=== PATIENT | male | born 1995 | race Caucasian/White ===

== ENCOUNTER 2016-11-10 18:05 | Emergency (ER) | payer BC ==
[2016-11-10 18:17] VITALS: RESP 16
[2016-11-10] MEDS ORDERED: DOXYCYCLINE HYCLATE 100 MG CAP/TAB PO ONE (19:19)
--- NOTE | 2016-11-10 19:26 | EDPHY ---
H & P Stated Complaint: rash on R side of chest tick Time Seen by Provider: 11/10/16 18:41 HPI/ROS: CHIEF COMPLAINT: tick bite followed by rash HISTORY OF PRESENT ILLNESS: 20-year-old male presents emergency department concerned about a rash to the right side of his chest. Patient was in [place] and pulled a tick off of the right side of his chest. Patient reports he had mild erythema surrounding this that resolved then approximately 1 week later developed a red rash to the right side of his chest that has grown in size. Patient denies fevers or chills, no headaches, muscle aches, joint pain. He denies itching to the rash, no pain. No nausea or vomiting, no abdominal pain. No tongue swelling, difficulty breathing. REVIEW OF SYSTEMS: A comprehensive 10 point review of systems is otherwise negative aside from elements mentioned in the history of present illness. Source: Patient Exam Limitations: No limitations - Personal History Current Tetanus/Diphtheria Vaccine: Yes Current Tetanus Diphtheria and Acellular Pertussis (TDAP): Yes - Medical/Surgical History Hx Asthma: No Hx Chronic Respiratory Disease: No Hx Diabetes: No Hx Cardiac Disease: No Hx Renal Disease: No Hx Cirrhosis: No Hx Alcoholism: No Hx HIV/AIDS: No Hx Splenectomy or Spleen Trauma: No - Social History Smoking Status: Current every day smoker - Physical Exam Exam: Physical Exam Gen: Alert and Oriented, NAD HEENT: PERRL, moist mucous membranes NECK: no meningismus CV: regular rate and regular rhythm PULM: CTAB, no wheezes ABDOMEN: soft, non tender to palpation, BS present BACK: No CVA tenderness NEURO: Neurologically grossly intact EXTREMITIES: normal appearing SKIN: large [place] rash to right side of chest PSYCH: answers questions appropriately. Constitutional: Initial Vital Signs Temperature (C) 36.8 C 11/10/16 18:14 Heart Rate 92 11/10/16 18:14 Respiratory Rate 16 11/10/16 18:14 Blood Pressure 98/58 L 11/10/16 18:14 O2 Sat (%) 93 11/10/16 18:14 O2 Delivery Mode Room Air Allergies/Adverse Reactions: No Known Allergies Allergy (Unverified 11/10/16 18:17) Home Medications: Medication Instructions Recorded Doxycycline Hyclate 100 mg PO BID #42 tab 11/10/16 Medical Decision Making ED Course/Re-evaluation: Patient presents with erythema migrans after a tick bite a [place] 20 days ago. Patient with no systemic symptoms, no fevers, joint pain, headaches. I started the patient on doxycycline twice daily. He has been given a 21 day course. Lyme antibody titer has been ordered. Patient has been referred to Infectious Disease to follow up at 1st available appointment. Differential Diagnosis: Diagnosis considered but not limited to Lyme disease, cellulitis, contact dermatitis, Selvin Maxx syndrome - Data Points Laboratory Results: Laboratory Results 11/10/16 18:31 11/10/16 18:31 11/10/16 11/10/16 11/10/16 18:31 18:31 18:31 WBC 8.37 10^3/uL 10^3/uL (3.80-9.50) RBC 4.74 10^6/uL 10^6/uL (4.40-6.38) Hgb 14.4 g/dL g/dL (13.7-17.5) Hct 39.9 % L % (40.0-51.0) MCV 84.2 fL fL (81.5-99.8) MCH 30.4 pg pg (27.9-34.1) MCHC 36.1 g/dL g/dL (32.4-36.7) RDW 13.0 % % (11.5-15.2) Plt Count 224 10^3/uL 10^3/uL (150-400) MPV 10.0 fL fL (8.7-11.7) Neut % (Auto) 78.3 % H % (39.3-74.2) Lymph % (Auto) 16.6 % % (15.0-45.0) [place] % (Auto) 3.6 % L % (4.5-13.0) Eos % (Auto) 0.5 % L % (0.6-7.6) Baso % (Auto) 0.6 % % (0.3-1.7) Nucleat RBC Rel Count 0.0 % % (0.0-0.2) Absolute Neuts (auto) 6.56 10^3/uL H 10^3/uL (1.70-6.50) Absolute Lymphs (auto) 1.39 10^3/uL 10^3/uL (1.00-3.00) Absolute Monos (auto) 0.30 10^3/uL 10^3/uL (0.30-0.80) Absolute Eos (auto) 0.04 10^3/uL 10^3/uL (0.03-0.40) Absolute Basos (auto) 0.05 10^3/uL 10^3/uL (0.02-0.10) Absolute Nucleated RBC 0.00 10^3/uL 10^3/uL (0-0.01) Immature Gran % 0.4 % % (0.0-1.1) Immature Gran # 0.03 10^3/uL 10^3/uL (0.00-0.10) Sodium 143 mEq/L mEq/L (134-144) Potassium 3.8 mEq/L mEq/L (3.5-5.2) Chloride 106 mEq/L mEq/L (97-110) Carbon Dioxide 25 mEq/l mEq/l (22-31) Anion Gap 12 mEq/L mEq/L (8-16) BUN 10 mg/dL mg/dL (7-23) Creatinine 1.1 mg/dL mg/dL (0.7-1.3) Estimated GFR > 60 Glucose 118 mg/dL H mg/dL (70-100) Calcium 9.7 mg/dL mg/dL (8.5-10.4) Total Bilirubin 0.6 mg/dL mg/dL (0.1-1.4) AST 23 IU/L IU/L (17-59) ALT 34 IU/L IU/L (21-72) Alkaline Phosphatase 50 IU/L IU/L (38-126) Total Protein 7.0 g/dL g/dL (6.3-8.2) Albumin 4.2 g/dL g/dL (3.5-5.0) Lyme Total Antibody Pending Medications Given: Discontinued Medications Doxycycline Hyclate (Doxycycline Hyclate) 100 mg PO EDNOW ONE PRN Reason: Protocol Stop: 11/10/16 19:20 Last Admin: 11/10/16 19:51 Dose: 100 mg Doxycycline Hyclate (Vibramycin 100 Mg Prepack#2) 1 btl TAKEHOME EDNOW ONE Stop: 11/10/16 19:29 Last Admin: 11/10/16 19:51 Dose: 1 btl Departure - Departure Disposition: Home, Routine, Self-Care Clinical Impression: Erythema migrans (Lyme disease) Condition: Good Instructions: Doxycycline (By mouth), Lyme Disease (ED) Additional Instructions: Take 100 mg of doxycycline twice a day for 21 days. Follow up with the infectious disease clinic at 1st available appointment, call tomorrow to schedule this. Referrals: [facility] (ED,. [Edm Groups for Call Sched] - As per Instructions () Prescriptions: Doxycycline Hyclate 100 mg PO BID #42 tab
[2016-11-10] MEDS ORDERED: DOXYCYCLINE 100 MG PREPACK#2 BTL TAKEHOME ONE (19:28)
[2016-11-10 19:30] LABS: % IMMATURE GRANULYOCYTES 0.4 % (0.0-1.1); ABSOLUTE IMMATURE GRANULOCYTES 0.03 10^3/uL (0.00-0.10); ADD DIFF? NO; ADD MORPH? NO; ADD SCAN? NO; ATYPICAL LYMPHOCYTE FLAG 20 (0-99); FRAGMENT RBC FLAG 0 (0-99); HEMATOCRIT 39.9 % (40.0-51.0); HEMOGLOBIN 14.4 g/dL (13.7-17.5); LEFT SHIFT FLG 0 (0-99); LIPEMIA HEMOLYSIS FLAG 90 (0-99); MEAN CELL HEMOGLOBIN 30.4 pg (27.9-34.1); MEAN CELL HEMOGLOBIN CONCENTR. 36.1 g/dL (32.4-36.7); MEAN CELL VOLUME 84.2 fL (81.5-99.8); PLATELET CLUMPS FLAG 10 (0-99); PLATELET COUNT 224 10^3/uL (150-400); RED BLOOD CELL COUNT 4.74 10^6/uL (4.40-6.38)
[2016-11-10 19:37] LABS: ALANINE AMINOTRANSFERASE 34 IU/L (21-72); ALBUMIN 4.2 g/dL (3.5-5.0); ALKALINE PHOSPHATASE 50 IU/L (38-126); ANION GAP 12 mEq/L (8-16); ASPARTATE AMINOTRANSFERASE 23 IU/L (17-59); BILIRUBIN,TOTAL 0.6 mg/dL (0.1-1.4); CALCIUM 9.7 mg/dL (8.5-10.4); CARBON DIOXIDE 25 mEq/l (22-31); CHLORIDE 106 mEq/L (97-110); CREATININE 1.1 mg/dL (0.7-1.3); GLOMERULAR FILTRATION RATE > 60; GLUCOSE 118 mg/dL (70-100); POTASSIUM 3.8 mEq/L (3.5-5.2); SODIUM 143 mEq/L (134-144)
[2016-11-10 19:57] VITALS: BP 110/74; PULSE 76; TEMP 98.6; O2SAT 96
[2016-11-12 17:30] LABS: LYME ANTIBODY Equivocal (Negative)
[2016-11-14 10:02] LABS: INTERPRETATION LYME AB See Comments; LYME IGG AB WESTERN BLOT Negative (Negative); LYME IGM AB WESTERN BLOT Negative (Negative)
== END 2016-11-10 19:56 | disposition home or self-care (01) ==
DX: A26.0 Cutaneous erysipeloid (principal); A69.20 Lyme disease, unspecified; F17.200 Nicotine dependence, unspecified, uncomplicated
CPT/HCPCS: 86617-90; 86618-90